=== PATIENT | female | born 1970 | race American Indian/Alaskan Native ===

== ENCOUNTER 2016-09-24 08:24 | Emergency (ER) | payer SELFPAY ==
[2016-09-24 09:18] LABS: Basophils % (Auto) 0.5 % (0.0-1.8); Eosinophils % (Auto) 1.8 % (0.0-4.3); Hematocrit 32.4 % (30.3-42.9); Hemoglobin 10.4 gm/dl (10.1-14.3); Mean Corpuscular HGB Conc 32 % (30-34); Mean Corpuscular Hemoglobin 27 pg (28-32); Mean Corpuscular Volume 83 fl (79-97); Platelet Count 215 K/mm3 (140-440); White Blood Count 6.1 K/mm3 (4.5-11.0)
--- NOTE | 2016-09-24 11:18 | Ultrasound Report ---
ULTRASOUND OB LESS THAN 14 WEEKS: ULTRASOUND OB TRANSVAGINAL: HISTORY: Vaginal bleeding, abdominal pain. Beta hCG level measures 825.2. FINDINGS: Transabdominal and transvaginal ultrasound images were obtained. The uterus measures 12.7 x 6.4 x 6.1 cm. No uterine fibroids are appreciated. The endometrial stripe measures 9.4 mm. No endometrial mass or fluid collection is appreciated. The right ovary measures 4.8 x 1.7 x 3.2 cm. There are 3 cystic lesions in the right adnexa measuring 1.8 cm, 2.2 cm, and 2.4 cm. It is unclear if this represents ovarian cysts, paraovarian cysts, or other structures. The left ovary is unremarkable and measures 2.3 x 1.6 x 1.6 cm. No pelvic fluid collection. IMPRESSION: No intrauterine is visualized. The endometrial stripe measures 9.4 mm. This could represent a spontaneous in the appropriate clinical scenario. 3 cysts in the right adnexa of uncertain etiology. These probably represent ovarian cysts. I cannot entirely exclude an ectopic at this time, please correlate with the patient.
[2016-09-24 14:53] LABS: Bacteria,Urine 1+ /HPF (Negative); Bilirubin,Urine NEG (Negative); Blood,Urine LG (Negative); Ketones,Urine TR mg/dL (Negative); Leukocyte Esterase,Urine TR (Negative); Mucus,Urine 2+ /HPF; Nitrite,Urine NEG (Negative); RBC,Urine > 182.0 /HPF (0.0-6.0); Urobilinogen,Urine < 2.0 mg/dL (<2.0)
[2016-09-24] MEDS ORDERED: NORCO 10/325 PO ONE (18:09)
--- NOTE | 2016-09-24 18:17 | Emergency Department Report ---
ED HPI - General Chief complaint: Abdominal Pain Stated complaint: ETOPIC /BLEEDING Time Seen by Provider: 09/24/16 17:57 Source: patient Mode of arrival: Ambulatory Limitations: No Limitations - History of Present Illness Initial comments: 45 y/o female complain of vaginal bleeding and abdominal pain x 2 days .pt state she was seen at [facility] and was told she was .pt state she had a ultrasound and but they was unable to see anything on the ultrasound.pt state that cramping has increase and she us current using 4-5 pads .pt state she unable to follow up with tobacco buyer . Complaint: vaginal bleeding Onset/Timin -: days(s) Location: abdomen Radiation: none Severity: moderate Severity scale (0 -10): 8 Quality: aching Consistency: constant Improves with: none Worsens with: none Associated symptoms: nausea/vomiting Vaginal bleeding: none :: Yes OB History - Previous Pregnancies: miscarriage Last menstrual period: 08/08/16 Pre-diaz care: none - Related Data : 6 Para: 5 Allergies Allergy/AdvReac Type Severity Reaction Status Date / Time tomato Allergy Swelling Verified 09/24/16 08:49 ED Review of Systems ROS: Stated complaint: ETOPIC /BLEEDING Other details as noted in HPI Constitutional: denies: chills, fever Eyes: denies: eye pain, eye discharge, vision change ENT: denies: ear pain, throat pain Respiratory: denies: cough, shortness of breath, wheezing Cardiovascular: denies: chest pain, palpitations Endocrine: no symptoms reported Gastrointestinal: abdominal pain. denies: nausea, diarrhea Genitourinary: denies: urgency, dysuria, discharge Musculoskeletal: denies: back pain, joint swelling, arthralgia Skin: denies: rash, lesions Neurological: denies: headache, weakness, paresthesias Psychiatric: denies: anxiety, depression Hematological/Lymphatic: denies: easy bleeding, easy bruising ED Past Medical Hx - Past Medical History Previous Medical History?: No - Social History Smoking Status: Unknown if ever smoked Substance Use Type: None ED Physical Exam - General Limitations: No Limitations General appearance: alert, in no apparent distress - Head Head exam: Present: atraumatic, normocephalic - Eye Eye exam: Present: normal appearance - ENT ENT exam: Present: mucous membranes moist - Neck Neck exam: Present: normal inspection - Respiratory Respiratory exam: Present: normal lung sounds bilaterally. Absent: respiratory distress - Cardiovascular Cardiovascular Exam: Present: regular rate, normal rhythm. Absent: systolic murmur, diastolic murmur, rubs, gallop - GI/Abdominal GI/Abdominal exam: Present: soft, normal bowel sounds - External exam: Present: normal external exam Speculum exam: Present: vaginal bleeding Bi-manual exam: Present: normal bi-manual exam - Extremities Exam Extremities exam: Present: normal inspection - Back Exam Back exam: Present: normal inspection - Neurological Exam Neurological exam: Present: alert, oriented X3 - Psychiatric Psychiatric exam: Present: normal affect, normal mood - Skin Skin exam: Present: warm, dry, intact, normal color. 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 Pt HCG 852 .pt normal H/H.will give macrobid for uti Critical care attestation.: If time is entered above; I have spent that time in minutes in the direct care of this critically ill patient, excluding procedure time. ED Disposition Clinical Impression: Spontaneous Urinary tract infection Qualifiers: Urinary tract infection type: site unspecified Hematuria presence: with hematuria Qualified Code(s): N39.0 - Urinary tract infection, site not specified ; R31.9 - Hematuria, unspecified Disposition: DISCHARGED TO HOME OR SELFCARE Is pt being admited?: No Does the pt Need Aspirin: No Condition: Stable Instructions: Abdominal Pain (ED), Spontaneous Miscarriage (ED), Urinary Tract Infection in Women (ED) Referrals: PRIMARY CARE, [Primary Care Provider] - 3-5 Days DELFINO CORDOVA MD [Staff Physician] - 3-5 Days Forms: Work/School Release Form(ED) Time of Disposition: 18:42
[2016-09-24 19:00] VITALS: BP 115/63
== END 2016-09-24 19:00 | disposition home or self-care (01) ==
LOC: ED 08:24
DX: O03.9 Complete or unspecified spontaneous abortion without complication (principal); O26.899 Other specified pregnancy related conditions, unspecified trimester; O23.40 Unspecified infection of urinary tract in pregnancy, unspecified trimester; Z3A.00 Weeks of gestation of pregnancy not specified
CPT/HCPCS: 36415; 76801; 76817; 81001; 84702; 85025; 86850; 86900; 86901

== ENCOUNTER 2017-09-20 09:15 | Emergency (ER) | payer SELFPAY | END 2017-09-20 11:02 | disposition left against medical advice (07) | LOC: ED 09:15 | DX: K08.89 Other specified disorders of teeth and supporting structures (principal); Z53.21 Procedure and treatment not carried out due to patient leaving prior to being seen by health care provider ==

== ENCOUNTER 2018-09-12 21:34 | Emergency (ER) | payer MEDICAID ==
--- NOTE | 2018-09-12 23:56 | Emergency Department Report ---
ED ENT HPI - General Chief complaint: Dental/Oral Stated complaint: TOOTHACHE Time Seen by Provider: 09/12/18 23:31 Source: patient Mode of arrival: Ambulatory Limitations: No Limitations - History of Present Illness Initial comments: 47-year-old -[place] female to emergency Department complaining of a chronic recurrent dental pain which has been recurrent for the last 1 month to the upper and lower right jaw area. Pain is rated intermittently to the right ear for the last 2 days and cause some some tenderness behind the ear as well. No fever, chills, sweats, no nausea, no vomiting, but does get sharp shooting headaches occasionally associated with a throbbing dental pain. Pain is worse with chewing and palpating the mandible area of dental pain MD complaint: tooth pain, ear pain Location: tooth # Severity: moderate Quality: dull, constant Consistency: constant Improves with: none Worsens with: none Context- Dental: history of dental caries, poor dental care Associated Symptoms: toothache. denies: pain with swallowing, tinnitus, discharge from ear, rhinorrhea - Related Data Previous Rx's Medication Instructions Recorded Last Taken Type Amoxicillin 500 mg PO QID #40 capsule 09/12/18 Unknown Rx Chlorhexidine Mouthwash [Peridex] 15 ml MM BID #1 bottle 09/12/18 Unknown Rx Ketorolac [Toradol] 10 mg PO Q6H PRN #15 tablet 09/12/18 Unknown Rx Lidocaine Viscous 2% 5 ml MM Q3H PRN #120 udc 09/12/18 Unknown Rx Allergies Allergy/AdvReac Type Severity Reaction Status Date / Time tomato Allergy Swelling Verified 09/24/16 08:49 ED Dental HPI - General Chief complaint: Dental/Oral Stated complaint: TOOTHACHE Time Seen by Provider: 09/12/18 23:31 Source: patient Mode of arrival: Ambulatory Limitations: No Limitations - Related Data Previous Rx's Medication Instructions Recorded Last Taken Type Amoxicillin 500 mg PO QID #40 capsule 09/12/18 Unknown Rx Chlorhexidine Mouthwash [Peridex] 15 ml MM BID #1 bottle 09/12/18 Unknown Rx Ketorolac [Toradol] 10 mg PO Q6H PRN #15 tablet 09/12/18 Unknown Rx Lidocaine Viscous 2% 5 ml MM Q3H PRN #120 udc 09/12/18 Unknown Rx Allergies Allergy/AdvReac Type Severity Reaction Status Date / Time tomato Allergy Swelling Verified 09/24/16 08:49 ED Review of Systems ROS: Stated complaint: TOOTHACHE Other details as noted in HPI Constitutional: denies: chills, fever Eyes: denies: eye pain, eye discharge, vision change ENT: throat pain, dental pain. denies: ear pain Respiratory: denies: cough, shortness of breath, wheezing Cardiovascular: denies: chest pain, palpitations Endocrine: no symptoms reported Gastrointestinal: denies: abdominal pain, nausea, diarrhea Genitourinary: denies: urgency, dysuria, discharge Musculoskeletal: denies: back pain, joint swelling, arthralgia Skin: denies: rash, lesions Neurological: denies: headache, weakness, paresthesias Psychiatric: denies: anxiety, depression Hematological/Lymphatic: denies: easy bleeding, easy bruising ED Past Medical Hx - Past Medical History Previous Medical History?: Yes Hx CVA: Yes (tia) Additional medical history: H/O HTN-no longer being treated for HTN, TIA - Surgical History Past Surgical History?: Yes Additional Surgical History: X4 - Social History Smoking Status: Current Every Day Smoker Substance Use Type: None - Medications Home Medications: Home Medications Medication Instructions Recorded Confirmed Last Taken Type Amoxicillin 500 mg PO QID #40 capsule 09/12/18 Unknown Rx Chlorhexidine Mouthwash [Peridex] 15 ml MM BID #1 bottle 09/12/18 Unknown Rx Ketorolac [Toradol] 10 mg PO Q6H PRN #15 tablet 09/12/18 Unknown Rx Lidocaine Viscous 2% 5 ml MM Q3H PRN #120 udc 09/12/18 Unknown Rx ED Physical Exam - General Limitations: No Limitations General appearance: alert, in no apparent distress - Head Head exam: Present: atraumatic, normocephalic - Eye Eye exam: Present: normal appearance, PERRL, EOMI Pupils: Present: normal accommodation - ENT ENT exam: Present: normal exam, mucous membranes moist, TM's normal bilaterally (tympanic membranes normal bilaterally of his beats tragal tenderness. There is some some redness behind the small area of a fissure), other (pain to the dental region lower molar tooth30 and 29 on the right region of tooth #2 and 3). Absent: mucous membranes dry (mucous membranes are moist. Minimal erythema adjacent swelling. Airway is patent. Tongue midline. Normal voice, no drooling.) - Neck Neck exam: Present: normal inspection. Absent: full ROM, lymphadenopathy - Respiratory Respiratory exam: Present: normal lung sounds bilaterally. Absent: respiratory distress, rales, rhonchi, chest wall tenderness, accessory muscle use, decreased breath sounds, prolonged expiratory - Cardiovascular Cardiovascular Exam: Present: regular rate, normal rhythm. Absent: systolic murmur, diastolic murmur, rubs, gallop - GI/Abdominal GI/Abdominal exam: Present: soft, normal bowel sounds. Absent: distended, tenderness, hyperactive bowel sounds, hypoactive bowel sounds - Extremities Exam Extremities exam: Present: normal inspection, full ROM, normal capillary refill. Absent: calf tenderness - Back Exam Back exam: Present: normal inspection. Absent: full ROM, tenderness, CVA tenderness (L) - Neurological Exam Neurological exam: Present: alert, oriented X3, CN II-XII intact. Absent: normal gait, motor sensory deficit - Psychiatric Psychiatric exam: Present: normal affect, normal mood - Skin Skin exam: Present: warm, dry, intact, normal color. Absent: rash ED Course Vital Signs 09/12/18 21:44 Temperature 99.0 F Pulse Rate 101 H Respiratory 18 Rate Blood Pressure 149/101 O2 Sat by Pulse 98 Oximetry Critical care attestation.: If time is entered above; I have spent that time in minutes in the direct care of this critically ill patient, excluding procedure time. ED Disposition Clinical Impression: Dentalgia, Otalgia of right ear Disposition: DC-01 TO HOME OR SELFCARE Is pt being admited?: No Does the pt Need Aspirin: No Condition: Stable Instructions: Dental Caries (ED), Earache (ED), Toothache (ED) Prescriptions: Amoxicillin 500 mg PO QID #40 capsule Chlorhexidine Mouthwash [Peridex] 15 ml MM BID #1 bottle Ketorolac [Toradol] 10 mg PO Q6H PRN #15 tablet PRN Reason: Pain Lidocaine Viscous 2% 5 ml MM Q3H PRN #120 udc PRN Reason: Pain, Moderate (4-6) Referrals: TAY IRAHETA MD [Primary Care Provider] - 3-5 Days
== END 2018-09-13 02:03 | disposition home or self-care (01) ==
LOC: ED 21:34
CPT/HCPCS: 99282

== ENCOUNTER 2020-05-27 18:04 | Emergency (ER) | payer SELFPAY ==
[2020-05-27 19:51] VITALS: BP 161/106
== END 2020-05-28 00:30 | disposition left against medical advice (07) ==
LOC: ED 18:04
DX: M54.2 Cervicalgia (principal); Z53.21 Procedure and treatment not carried out due to patient leaving prior to being seen by health care provider

== ENCOUNTER 2020-10-05 20:49 | Emergency (ER) | payer BC ==
[2020-10-05 20:59] VITALS: BP 152/105
--- NOTE | 2020-10-05 21:33 | XRay Report ---
CHEST 2 VIEWS INDICATION / CLINICAL INFORMATION: cough. COMPARISON: 03/27/2010 FINDINGS: SUPPORT DEVICES: None. HEART / MEDIASTINUM: No significant abnormality. LUNGS / PLEURA: No significant pulmonary or pleural abnormality. No pneumothorax. ADDITIONAL FINDINGS: No significant additional findings. IMPRESSION: 1. No acute findings. Signer Name: Miguelito Cordova MD Signed: 10/05/2020 9:28 PM Workstation Name: [id number]
--- NOTE | 2020-10-05 22:16 | Emergency Department Report ---
ED General Adult HPI - General Chief complaint: Dyspnea/Respdistress Stated complaint: LOLA Time Seen by Provider: 10/05/20 21:09 Source: patient Mode of arrival: Ambulatory Limitations: No Limitations - History of Present Illness Initial comments: 49-year-old female smoker presents emerged department complaining of few day history of cough with mucus production, congestion coryza with myalgias . Ports no hemoptysis no hematemesis hematochezia. Reports no fever, chills, sweats. -: Gradual Radiation: non-radiation Quality: aching, dull Consistency: constant Improves with: none Worsens with: none Associated Symptoms: cough, malaise. denies: diaphoresis, rash, syncope, weakness Treatments Prior to Arrival: none - Related Data Previous Rx's Medication Instructions Recorded Last Taken Type Amoxicillin 500 mg PO QID #40 capsule 09/12/18 Unknown Rx Chlorhexidine Mouthwash [Peridex] 15 ml MM BID #1 bottle 09/12/18 Unknown Rx Ketorolac [Toradol] 10 mg PO Q6H PRN #15 tablet 09/12/18 Unknown Rx Lidocaine Viscous 2% 5 ml MM Q3H PRN #120 udc 09/12/18 Unknown Rx Albuterol Mdi (or & Nicu Only) 1 puff IH Q4-6H PRN #1 inha 10/05/20 Unknown Rx [ProAir HFA Inhaler] Azithromycin [Zithromax] 500 mg PO QDAY #5 tablet 10/05/20 Unknown Rx Benzonatate [Tessalon Perles] 100 mg PO Q8HR #20 capsule 10/05/20 Unknown Rx Allergies Allergy/AdvReac Type Severity Reaction Status Date / Time tomato Allergy Swelling Verified 09/24/16 08:49 ED Review of Systems ROS: Stated complaint: LOLA Other details as noted in HPI Comment: All other systems reviewed and negative ED Past Medical Hx - Past Medical History Previous Medical History?: Yes Hx Hypertension: Yes (not on meds) Hx CVA: Yes (tia) Additional medical history: TIA - Surgical History Past Surgical History?: Yes Additional Surgical History: X4. left elbow - Social History Smoking Status: Current Every Day Smoker Substance Use Type: None - Medications Home Medications: Home Medications Medication Instructions Recorded Confirmed Last Taken Type Amoxicillin 500 mg PO QID #40 capsule 09/12/18 Unknown Rx Chlorhexidine Mouthwash [Peridex] 15 ml MM BID #1 bottle 09/12/18 Unknown Rx Ketorolac [Toradol] 10 mg PO Q6H PRN #15 tablet 09/12/18 Unknown Rx Lidocaine Viscous 2% 5 ml MM Q3H PRN #120 udc 09/12/18 Unknown Rx Albuterol Mdi (or & Nicu Only) 1 puff IH Q4-6H PRN #1 inha 10/05/20 Unknown Rx [ProAir HFA Inhaler] Azithromycin [Zithromax] 500 mg PO QDAY #5 tablet 10/05/20 Unknown Rx Benzonatate [Tessalon Perles] 100 mg PO Q8HR #20 capsule 10/05/20 Unknown Rx ED Physical Exam - General Limitations: No Limitations General appearance: alert, in no apparent distress - Head Head exam: Present: atraumatic, normocephalic - Eye Eye exam: Present: normal appearance, PERRL, EOMI Pupils: Present: normal accommodation - ENT ENT exam: Present: mucous membranes moist - Neck Neck exam: Present: normal inspection - Respiratory Respiratory exam: Present: normal lung sounds bilaterally, rhonchi. Absent: respiratory distress, wheezes, rales, accessory muscle use, decreased breath sounds, prolonged expiratory - Cardiovascular Cardiovascular Exam: Present: regular rate, normal rhythm. Absent: bradycardia, tachycardia, systolic murmur, diastolic murmur, rubs, gallop - GI/Abdominal GI/Abdominal exam: Present: soft, normal bowel sounds. Absent: guarding, rebound - Extremities Exam Extremities exam: Present: normal inspection - Back Exam Back exam: Present: normal inspection - Neurological Exam Neurological exam: Present: alert, oriented X3 - Psychiatric Psychiatric exam: Present: normal affect, normal mood - Skin Skin exam: Present: warm, dry, intact, normal color. Absent: rash ED Course Vital Signs 10/05/20 20:56 Temperature 98.4 F Pulse Rate 102 H Respiratory 20 Rate Blood Pressure 152/105 O2 Sat by Pulse 98 Oximetry ED Medical Decision Making - Radiology Data Radiology results: report reviewed Referring Physician:MONTY GARVINPatient Name:JOSE A PAPatient ID:[id number] of :[id number]:FemaleAccession:[id number] Date:[id number] Status:Finalized Findings [address] [place] [address] XRay Report Signed Patient: JOSE A PA MR#: [id number] : 1970 Acct:[id number] Age/Sex: 49 / F ADM Date: 10/05/20 Loc: ED Attending Dr: Ordering Physician: MONTY GARVIN MD Date of Service: 10/05/20 Procedure(s): XR chest routine 2V Accession Number(s): [id number] cc: MONTY GARVIN MD Fluoro Time In Minutes: CHEST 2 VIEWS INDICATION / CLINICAL INFORMATION: cough. COMPARISON: 03/27/2010 FINDINGS: SUPPORT DEVICES: None. HEART / MEDIASTINUM: No significant abnormality. LUNGS / PLEURA: No significant pulmonary or pleural abnormality. No pneumothorax. ADDITIONAL FINDINGS: No significant additional findings. IMPRESSION: 1. No acute findings. Signer Name: Miguelito Cordova MD Signed: 10/05/2020 9:28 PM Workstation Name: [id number] Transcribed By: SS Dictated By: Miguelito Cordova MD Electronically Authenticated By: Miguelito Cordova MD Signed Date/Time: 10/05/202127 DD/ 26 TD/TT: - Medical Decision Making This patient presents with acute cough, most consistent with bronchitis. Differential diagnosis includes bronchitis, pneumonia, asthma, URI,. Presentation not consistent with acute bacterial pneumonia, influenza, asthma, transient airway hyperresponsiveness. Presentation not consistent with chronic causes of cough (including GERD, asthma, postnasal discharge, medication side effect, CHF, lung cancer or mass). Normal CXR, Plan: supportive care, reassess Critical care attestation.: If time is entered above; I have spent that time in minutes in the direct care of this critically ill patient, excluding procedure time. ED Disposition Clinical Impression: Cough, Bronchitis Disposition: DC-01 TO HOME OR SELFCARE Is pt being admited?: No Does the pt Need Aspirin: No Condition: Stable Instructions: Cool Mist Vaporizer, Upper Respiratory Infection, Adult, [id number], Cough, Adult, How to Use a Dry Powder Inhaler, Chronic Bronchitis (ED) Prescriptions: Albuterol Mdi (or & Nicu Only) [ProAir HFA Inhaler] 1 puff IH Q4-6H PRN #1 inha PRN Reason: Cough Benzonatate [Tessalon Perles] 100 mg PO Q8HR #20 capsule Azithromycin [Zithromax] 500 mg PO QDAY #5 tablet Referrals: PRIMARY CARE, [Primary Care Provider] - 3-5 Days [facility] [Provider Group] - 3-5 Days
== END 2020-10-05 22:38 | disposition home or self-care (01) ==
LOC: ED 20:49
DX: J40 Bronchitis, not specified as acute or chronic (principal); R05 Cough; I10 Essential (primary) hypertension; F17.200 Nicotine dependence, unspecified, uncomplicated; Z98.890 Other specified postprocedural states; Z79.2 Long term (current) use of antibiotics; Z79.899 Other long term (current) drug therapy; Z91.018 Allergy to other foods
CPT/HCPCS: 71046

== ENCOUNTER 2021-01-09 02:29 | Emergency (ER) | payer BC ==
[2021-01-09 03:16] VITALS: BP 153/95
--- NOTE | 2021-01-09 05:27 | XRay Report ---
LEFT KNEE 3 VIEWS 0458 INDICATION: knee pain COMPARISON: None available. FINDINGS: No fractures or dislocations are seen. There appears to be a moderate joint effusion. Signer Name: Billy Fink MD Signed: 01/09/2021 5:23 AM Workstation Name: [id number]
--- NOTE | 2021-01-09 06:17 | Emergency Department Report ---
ED Lower Extremity HPI - General Chief Complaint: Extremity Injury, Lower Stated Complaint: SWOLLEN LT KNEE, BITE ON FACE Time Seen by Provider: 01/09/21 04:32 Source: patient Mode of arrival: Ambulatory Limitations: No Limitations - History of Present Illness Initial Comments: 50-year-old F M[place] female presents emerged department complaining of a 3 to 4-week progressive worsening history of left knee pain and swelling of an unknown etiology. She reports no direct trauma to her knee but has had a job which involves an excessive amount of stairs and also she reports an increased amount of weight gain which may have contributed to her symptoms. She reports pain is dull and throbbing is worse with palpation and range of motion and with twisting and turning. Also she reports some knee swelling as well no numbness or tingling. No no redness. Reports no fevers chills or sweats. MD Complaint: knee injury Injury: Knee: Left Type of Injury: blunt Place: home Severity: mild Worsens With: weight bearing, movement, palpation Associated Symptoms: swelling, numbness, unable to bear weight, able to partially bear weight - Related Data Previous Rx's Medication Instructions Recorded Last Taken Type Amoxicillin 500 mg PO QID #40 capsule 09/12/18 Unknown Rx Chlorhexidine Mouthwash [Peridex] 15 ml MM BID #1 bottle 09/12/18 Unknown Rx Ketorolac [Toradol] 10 mg PO Q6H PRN #15 tablet 09/12/18 Unknown Rx Lidocaine Viscous 2% 5 ml MM Q3H PRN #120 udc 09/12/18 Unknown Rx Albuterol Mdi (or & Nicu Only) 1 puff IH Q4-6H PRN #1 inha 10/05/20 Unknown Rx [ProAir HFA Inhaler] Azithromycin [Zithromax] 500 mg PO QDAY #5 tablet 10/05/20 Unknown Rx Benzonatate [Tessalon Perles] 100 mg PO Q8HR #20 capsule 10/05/20 Unknown Rx Ketorolac [Toradol] 10 mg PO Q6H PRN #14 tablet 01/09/21 Unknown Rx Allergies Allergy/AdvReac Type Severity Reaction Status Date / Time tomato Allergy Swelling Verified 09/24/16 08:49 ED Review of Systems ROS: Stated complaint: SWOLLEN LT KNEE, BITE ON FACE Other details as noted in HPI Comment: All other systems reviewed and negative ED Past Medical Hx - Past Medical History Hx Hypertension: Yes (not on meds) Hx CVA: Yes (tia) Hx Asthma: Yes Additional medical history: TIA - Surgical History Additional Surgical History: X4. left elbow - Social History Smoking Status: Current Every Day Smoker Substance Use Type: Alcohol - Medications Home Medications: Home Medications Medication Instructions Recorded Confirmed Last Taken Type Amoxicillin 500 mg PO QID #40 capsule 09/12/18 Unknown Rx Chlorhexidine Mouthwash [Peridex] 15 ml MM BID #1 bottle 09/12/18 Unknown Rx Ketorolac [Toradol] 10 mg PO Q6H PRN #15 tablet 09/12/18 Unknown Rx Lidocaine Viscous 2% 5 ml MM Q3H PRN #120 udc 09/12/18 Unknown Rx Albuterol Mdi (or & Nicu Only) 1 puff IH Q4-6H PRN #1 inha 10/05/20 Unknown Rx [ProAir HFA Inhaler] Azithromycin [Zithromax] 500 mg PO QDAY #5 tablet 10/05/20 Unknown Rx Benzonatate [Tessalon Perles] 100 mg PO Q8HR #20 capsule 10/05/20 Unknown Rx Ketorolac [Toradol] 10 mg PO Q6H PRN #14 tablet 01/09/21 Unknown Rx ED Physical Exam - General Limitations: No Limitations General appearance: alert, in no apparent distress - Head Head exam: Present: atraumatic, normocephalic - Eye Eye exam: Present: normal appearance - ENT ENT exam: Present: mucous membranes moist - Neck Neck exam: Present: normal inspection - Respiratory Respiratory exam: Present: normal lung sounds bilaterally. Absent: respiratory distress - Cardiovascular Cardiovascular Exam: Present: regular rate, normal rhythm. Absent: systolic murmur, diastolic murmur, rubs, gallop - GI/Abdominal GI/Abdominal exam: Present: soft, normal bowel sounds - Extremities Exam Extremities exam: Present: normal inspection, tenderness (Tenderness to the left knee around the area of the patella and also medially located to the lateral popliteal region. No popliteal masses noted. Pulses are 2+. There is an obvious effusion present. There is also some discomfort with manipulation of the patella.), joint swelling - Back Exam Back exam: Present: normal inspection. Absent: CVA tenderness (R), CVA tenderness (L) - Neurological Exam Neurological exam: Present: alert, oriented X3, CN II-XII intact, normal gait - Psychiatric Psychiatric exam: Present: normal affect, normal mood - Skin Skin exam: Present: warm, dry, intact, normal color. Absent: rash ED Course Vital Signs 01/09/21 02:32 Temperature 98.9 F Pulse Rate 98 H Respiratory 18 Rate Blood Pressure 153/95 O2 Sat by Pulse 96 Oximetry ED Lower Extremity MDM - Radiology Data Radiology results: report reviewed [address] [place] [id number] XRay Report Signed Patient: JOSE A PA MR#: [id number] : 1970 Acct:[id number] Age/Sex: 50 / F ADM Date: 01/09/21 Loc: ED Attending Dr: Ordering Physician: DEBBY LE Date of Service: 01/09/21 Procedure(s): XR knee 3V LT Accession Number(s): [id number] cc: DEBBY LE Fluoro Time In Minutes: LEFT KNEE 3 VIEWS 0458 INDICATION: knee pain COMPARISON: None available. FINDINGS: No fractures or dislocations are seen. There appears to be a moderate joint effusion. Signer Name: Billy Fink MD Signed: 01/09/2021 5:23 AM Workstation Name: [id number] Transcribed By: GJ Dictated By: Billy Fink MD Electronically Authenticated By: Billy Fink MD Signed Date/Time: 01/09/21522 DD/ 1 TD/TT: Print Cancel - Medical Decision Making 50-year-old female with atraumatic left knee pain with resulting in effusion and swelling plan is placed in a knee immobilizer and crutches and she can move forward with anti-inflammatories and ice therapy. X-ray was obtained is no evidence of any osseous injury. There is possibility for internal internal derangement but he will need to follow-up with orthopedic for reevaluation and likely an MRI Critical care attestation.: If time is entered above; I have spent that time in minutes in the direct care of this critically ill patient, excluding procedure time. ED Disposition Clinical Impression: Knee internal derangement Disposition: DC-01 TO HOME OR SELFCARE Is pt being admited?: No Does the pt Need Aspirin: No Condition: Stable Instructions: Acute Knee Pain, Adult, [id number], Medial Collateral Knee Ligament Sprain, Phase I Rehab-SportsMed Additional Instructions: Be sure to follow-up with the orthopedic physician I have listed Dr. Quezada on here for your convenience Prescriptions: Ketorolac [Toradol] 10 mg PO Q6H PRN #14 tablet PRN Reason: Pain Referrals: PRIMARY CAREMD [Primary Care Provider] - 3-5 Days ERICA QUEZADA MD [Staff Physician] - 3-5 Days
== END 2021-01-09 06:30 | disposition home or self-care (01) ==
LOC: ED 02:29
DX: M23.92 Unspecified internal derangement of left knee (principal); I10 Essential (primary) hypertension; J45.909 Unspecified asthma, uncomplicated; F17.200 Nicotine dependence, unspecified, uncomplicated; Z91.018 Allergy to other foods; Z79.899 Other long term (current) drug therapy; Z98.890 Other specified postprocedural states; Z86.73 Personal history of transient ischemic attack (TIA), and cerebral infarction without residual deficits